=== PATIENT | female | born 1975 | race Caucasian/White ===

== ENCOUNTER 2025-06-12 15:30 | Emergency (ER) | payer SELFPAY ==
--- NOTE | 2025-06-12 15:33 | ED_ITS ---
HPI - General Adult General Chief complaint: Upper Respiratory Symptoms Stated complaint: ? strep throat ? pink eye, not feeling well Time Seen by Provider: 06/12/25 16:41 Source: patient, RN notes reviewed and old records reviewed Mode of arrival: ambulatory Limitations: no limitations History of Present Illness ED Provider: Rigo [facility] narrative: Patient is a 49-year-old female with history of tonsillectomy presenting with complaint of sore throat x 1 week, this morning woke with eyes crusted shut. States really has not had a sore throat since tonsillectomy. Denies cough, fever. Very painful swallowing. MD complaint: sore throat Onset (ago): week(s) Related Data Previous Rx's ?Medication ?Instructions ?Recorded amoxicillin 500 mg tablet 500 mg PO BID #20 tabs 06/12 Allergies Allergy/AdvReac Type Severity Reaction Status Date / Time hydrocodone (HYDROCODONE) Allergy Unknown HIVES Verified 06/12/25 15:37 Review of Systems Review of Systems: As per HPI Yes all other systems are reviewed and are negative Constitutional: Constitutional: Reports as per HPI [facility] Social History Social History Do you have a plan to hurt others: No Plan Physical Exam ED Vital Signs: Vital Signs - 24 hr 06/12/25 15:36 Temperature 98.1 F Pulse Rate 67 Respiratory Rate 16 Blood Pressure 138/84 Pulse Oximetry 96 Oxygen Delivery Method Room Air BMI result Body Mass Index 31.7 Vital signs have been reviewed and appear to be correct. Blood pressure normal. Heart rate normal. Respiratory rate normal. Temperature normal. Oxygen saturation normal. Const General: cooperative, healthy appearing and no acute distress Orientation/consciousness: oriented to person, oriented to place, oriented to time and patient oriented x3 Limitations: no limitations HENTN Head: Yes normocephalic and Yes atraumatic Ears: external ears normal, TM's normal bilaterally and EAC's normal General nose exam: Normal external nose present, Normal nasal mucous membranes and turbinates present and Normal septum present Face and sinus: Yes face symmetric Mouth: Normal oral and palatal mucosa present, oropharynx normal, moist mucous membranes, no audible dysphonia, no drooling and no trismus Throat: Yes uvula midline, Yes posterior oropharynx abnormal (erythematous), Yes tonsils absent and No uvular edema Eyes General: appearance normal, both eyes and all related structures Conjunctivae: conjunctivae normal Pupils: Equal, round and reactive pupils present EOM: EOMs intact bilaterally Neck Neck: Yes normal visual inspection, Yes no lymphadenopathy and Yes supple Resp Effort & Inspection: normal respiratory effort and able to speak in complete sentences Auscultation: clear to auscultation bilaterally Cardio Rate: regular rate Rhythm: regular rhythm Heart sounds: S1 normal heart sound present and S2 normal heart sound present GI Palpation (GI): Soft to palpation and nontender Auscultation: normoactive bowel sounds General: Yes no CVA tenderness Back/Spine/Pelvis Back: no CVA tenderness Skin General skin exam: elasticity normal and turgor normal Neuro General: oriented to person, oriented to place, oriented to time, patient oriented x3, moves all extremities, no focal motor deficits and CN's II-XI intact bilaterally Cranial nerves: Yes Equal, round and reactive pupils present Cognition (Neuro): normal cognition Extrem General: Yes full ROM, Yes no pedal edema and Yes no calf tenderness Psych Mental Status: mental status grossly normal Affect: normal affect Thought process: Normal thought process present Course Course Course Narrative: This is a rapid medical exam performed by Shannon Sierra NP: Additional HPI, ROS, PE not included below will be deferred to primary provider. Patient is a 49-year-old female with history of tonsillectomy presenting with complaint of sore throat x 1 week, this morning woke with eyes crusted shut. Plan: strep and viral swabs Medical Decision Making Medical Decision Making [facility] Narrative: Patient is a 49-year-old female with history of tonsillectomy presenting with complaint of sore throat x 1 week, this morning woke with eyes crusted shut. On exam patient is awake, A+Ox3, VS WNL, afebrile, normal neurological exam without focal deficits, physical exam findings as above. Given reported symptoms and physical exam findings, initial differential includes but is not limited to viral versus strep pharyngitis, Covid, flu. Viral serology negative. Strep swab positive. Patient updated on results and all questions answered. Will treat with amoxicillin. Discussed with patient that she is contagious until she has been on the abx for 24 hours. Tylenol/ibuprofen as needed for pain or fever. Return precautions discussed. Patient verbalized understanding of and agreement with plan. Differential Diagnosis Differential Diagnoses: The differential diagnosis associated with the presentation includes as per mdm Admission/Observation Consideration of admission/observation: Escalation of care including admission/observation considered Patient would have been admitted to the hospital had their clinical presentation warranted hospital admission. Lab Data as per [facility] Labs: Lab Results 06/12/25 Range/Units 15:43 Influenza Type A (PCR) NEGATIVE (Negative) Influenza Type B (PCR) NEGATIVE (Negative) RSV RNA Qual (PCR) NEGATIVE (Negative) SARS-CoV-2 RNA (RT-PCR) NEGATIVE (Negative) S. pyogenes GrpA MARCIE Positive A (Negative) External Record Review External record reviewed: Inpatient record, Office record and Outpatient record Prescription Management I considered prescription management with: Antibiotic Discharge Plan Discharge Clinical Impression: Acute streptococcal pharyngitis Patient Disposition: Home, Self-Care Instructions: Strep Throat (DC) Additional Instructions: You were evaluated in the emergency department today for a sore throat. Your strep swab was positive. You are being prescribed antibiotics, please complete the full course as prescribed even if your symptoms improve. You are contagious until you have taken the antibiotics for 24 hours. Be sure to drink adequate fluids. You can also gargle with warm salt water several times daily. You can use Tylenol and ibuprofen per package directions as needed for fever or discomfort. After you have been on antibiotics for 24 hours, you should throw away your toothbrush and get a new one. Follow-up with your primary care provider this week. Return to the emergency department if you develop difficulty swallowing, worsening pain, shortness of breath, are unable to swallow your saliva, fever not improved with Tylenol/ibuprofen, or any other concerning symptoms. Prescriptions: New amoxicillin 500 mg tablet 500 mg PO BID Qty: 20 0RF Print Language: Greenlandic
[2025-06-12 15:36] VITALS: BP 138/84; PULSE 67; RESP 16; TEMP 36.7; O2SAT 96; BMI 31.7
[2025-06-12 16:34] LABS: Resp Syncy Virus RNA Qual PCR NEGATIVE (Negative); SARS COV2 PCR INHOUSE NEGATIVE (Negative)
[2025-06-12 16:49] LABS: IDNOW Serial# 55D5AD1C; Strep A Nucleic Acid Positive (Negative)
[2025-06-12 17:12] VITALS: BP 115/58; PULSE 66; RESP 20; O2SAT 99
== END 2025-06-12 17:32 | disposition home or self-care (01) ==
LOC: HO.ED 17:27
PROVIDERS: Registered Nurse Emergency; Emergency Provider Emergency Medicine Emergency Medical Services
DX: J02.0 Streptococcal pharyngitis (principal); Z03.818 Encounter for observation for suspected exposure to other biological agents ruled out
CPT/HCPCS: 87637; 87651; 99283